=== PATIENT | female | born 1995 | race Caucasian/White ===

== ENCOUNTER 2020-01-05 12:24 | Emergency (ER) | payer BC, SELFPAY ==
[2020-01-05 13:10] VITALS: BP 142/82; PULSE 84; RESP 20; TEMP 36.6; O2SAT 99
--- NOTE | 2020-01-05 14:22 | ED.GENADULT ---
HPI - General Adult General Chief complaint: Urogenital-Female Stated complaint: vomiting Time Seen by Provider: 01/05/20 14:22 Source: patient and RN notes reviewed Mode of arrival: ambulatory Limitations: no limitations History of Present Illness HPI narrative: 24-year-old female presents with urinary complaints for the past 7 days. Dysuria consist of burning, frequency, and urgency.? No treatment.? Denies fever or chills. No significant pelvic pain. No vaginal discharge.? No concerns for STDs. Exacerbating factors urinating.? Denies hematuria or vaginal bleeding. Denies being , LMP 12/05/19 José says she has irregualr menstrual cycles. No flank pain. One episode of emesis without blood or coffee ground contents in the earlly am. Denies nausea and abdominal pain.? Tolerating liquids well.? Remains active. Some parts of this dictation were generated by voice recognition software and may contain typographical and/or grammatical inaccuracies. Related Data Allergies Allergy/AdvReac Type Severity Reaction Status Date / Time metoclopramide [From Reglan] Allergy Anxiety Verified 01/05/20 14:40 Review of Systems Review of Systems: Narrative: CONSTITUTIONAL: Denies fever, chills, sweats. EYES: Denies visual changes, redness, discharge. ENT: Denies rhinorrhea, congestion, sore throat, otalgia. CARDIOVASCULAR: Denies chest pain, palpitations, edema. RESPIRATORY: Denies dyspnea, wheezing, cough. GASTROINTESTINAL: Denies abdominal pain, nausea, vomiting, diarrhea. GENITOURINARY: Complains of dysuria (burning, frequency, and urgency). Denies hematuria, abnormal discharge. SKIN: Denies rash or itching. MUSCULOSKELETAL: Denies acute back pain, joint pain, or myalgia. NEUROLOGIC: Denies numbness or focal weakness. PSYCHIATRIC: Denies anxiety or depression. All systems reviewed & are unremarkable except as noted in HPI and below. [facility] Past Medical History Medical History (Updated 01/06/20 @ 00:00 by Background Daemon) , ectopic Surgical History Surgical History (Updated 01/05/20 @ 14:50 by SANJANA Tejada) History of cholecystectomy Family History Family History (Updated 01/05/20 @ 14:51 by SANJANA Tejada) Mother Alive and well Father Alive and well Social History Social History (Updated 01/05/20 @ 14:51 by SANJANA Tejada) Smoking status: Former smoker Alcohol intake: never Substance use: current Substance use type: marijuana Living arrangements: with family Occupation/Education: occupation Gender identity (if verbalized by the patient): Female Comments At time of signature, agree with nurse past medical, surgical, social, and family history.? There is no relevant family history pertinent to the presenting complaint. Exam Narrative: Exam Narrative: GENERAL: This is a well-nourished, well-developed patient, in no apparent distress.? Talks in full sentences and ambulates with steady gait without dyspnea. HEAD: normocephalic, atraumatic. EYES: PERRL. Sclera clear/white. Vision is grossly intact. CARDIOVASCULAR: Regular rate and rhythm without murmurs, gallops, or rubs. RESPIRATORY: Clear to auscultation. Breath sounds equal bilaterally. No wheezes, rales, or rhonchi.? GASTROINTESTINAL: Abdomen soft, no significant abdominal tenderness, nondistended. Bowel sounds are active. No hepato-splenomegaly, or palpable masses. No guarding. SKIN: warm, intact with no suspicious lesions or rash, No Purpura or Ecchymosis, good texture and turgor. NEURO: awake, alert, and oriented to person, place and time. There were no obvious focal neurologic abnormalities.? EXTREMITIES: No clubbing, cyanosis, or edema. BACK: Nontender without deformity or crepitance.?No flank tenderness with palpitation. [place] Coma Scale Eye Opening:? Spontaneous 4 Chris Coma Scale Motor:? Obeys Commands 6 [place] Coma Scale Verbal:? Oriented 5 Course Vital Signs Vital signs: Vital Signs T
== END 2020-01-05 15:00 | disposition home or self-care (01) ==
PROVIDERS: Emergency Provider Nurse Practitioner Family
DX: R30.0 Dysuria (principal); Z87.891 Personal history of nicotine dependence
CPT/HCPCS: 81003; 87086; 87088; 99213; G0463

== ENCOUNTER 2020-02-11 11:54 | Emergency (ER) | payer BC, SELFPAY ==
[2020-02-11 11:58] VITALS: BP 131/68; PULSE 86; RESP 14; TEMP 37.3; O2SAT 99
--- NOTE | 2020-02-11 12:05 | ED.GENADULT ---
HPI - General Adult General Chief complaint: Upper Respiratory Infection Stated complaint: head chest and ears hurt and cough History of Present Illness HPI narrative: This is a 24 year old that comes in complaining of headache, and states that she has a headache and she has pressure like a elephant sitting on her chest. when questioned if there is shortness of breath patient denied . Patient denies having any heart pain or palpitation. patient denied any shooting pain down her arm and then stated I don't know what I meant. Patient states that her behind her ear hurts and she has a slight sore throat. Patient states that her ear feel clogged. Related Data Allergies Allergy/AdvReac Type Severity Reaction Status Date / Time metoclopramide [From Reglan] Allergy Anxiety Verified 02/11/20 12:05 Review of Systems Review of Systems: Narrative: CONSTITUTIONAL: Denies fever, chills, or sweats. EYES: Denies visual changes, redness, or discharge. ENT: Reports rhinorrhea, congestion, sore throat, or otalgia. CARDIOVASCULAR:Denies chest pain, palpitations, or edema. RESPIRATORY: Reports cough or dyspnea. GASTROINTESTINAL: Denies abdominal pain, nausea, vomiting, or diarrhea. GENITOURINARY: Denies dysuria or hematuria. SKIN:[Denies rash or itching. MUSCULOSKELETAL:Denies back pain, joint pain, or myalgia. NEUROLOGIC: Denies headache, numbness, or weakness. PSYCHIATRIC:Denies anxiety or depression [facility] Past Medical History Medical History (Updated 02/11/20 @ 12:43 by Isaiah Wan NP) , ectopic Surgical History Surgical History (Updated 01/05/20 @ 14:50 by SANJANA Tejada) History of cholecystectomy Family History Family History (Updated 01/05/20 @ 14:51 by SANJANA Tejada) Mother Alive and well Father Alive and well Social History Social History (Updated 01/05/20 @ 14:51 by SANJANA Tejada) Smoking status: Former smoker Alcohol intake: never Substance use: current Substance use type: marijuana Gender identity (if verbalized by the patient): Female Comments At time as signature, I have reviewed and agree with nursing past medical, social, surgical and family history. Please see nursing chart for further information. There is no relevant family history pertinent to the presenting complaint. Exam Narrative: Exam Narrative: GENERAL:Well-appearing, well-nourished, and in no acute distress. HEAD:Normocephalic, atraumatic. EYES: PERRLA and EOMI. ENT: Nares clear, no rhinorrhea or epistaxis. Mucous membranes moist. Pharyngeal erythema NECK: Supple. CHEST: Clear to auscultation. No respiratory distress. HEART: Regular rate and rhythm. No murmur heard. Normal peripheral pulses. ABDOMEN: Soft, nontender, nondistended, normal active bowel sounds. EXTREMITIES: Normal range of motion. No edema. SKIN: Warm, dry, no rash. NEURO: No focal deficits. Alert and oriented x3. Patient is sitting calming with even and unlabored breathing. No distress noted. after Tordal patient states her headache is gone and her chest pressure is gone Pain was a 5/10 now it is 1-0/10 Course Course Emergency Course: Patient is aware of diagnosis, understands and agrees to treatment plan. Anticipatory guidance given. Patient agrees to follow-up as directed and is aware of reasons to seek care at the emergency department. Vital Signs Vital signs: Vital Signs Temperature 99.1 F 02/11/20 11:58 Pulse Rate 86 02/11/20 11:58 Respiratory Rate 14 02/11/20 11:58 Blood Pressure 131/68 02/11/20 11:58 Pulse Oximetry 99 02/11/20 11:58 Temperature 99.1 F 02/11/20 11:58 Pulse Rate 86 02/11/20 11:58 Respiratory Rate 14 02/11/20 11:58 Blood Pressure 131/68 02/11/20 11:58 Pulse Oximetry 99 02/11/20 11:58 Medical Decision Making Differential Diagnosis Differential Diagnosis: Pneumonia, Allergic Rhinitis, Asthma/COPD exacerbation, Upper respiratory cough syndrome, Pha
[2020-02-11] MEDS: KETOROLAC 30 MG/ML VIAL (*BKC) IM (12:11)
== END 2020-02-11 12:54 | disposition home or self-care (01) ==
PROVIDERS: Emergency Provider Nurse Practitioner Family
DX: G44.209 Tension-type headache, unspecified, not intractable (principal); J30.9 Allergic rhinitis, unspecified; Z87.891 Personal history of nicotine dependence
CPT/HCPCS: 87081; 87880; 96372; 99213; G0463; J1885

== ENCOUNTER 2021-07-27 08:55 | Emergency (ER) | payer BC, SELFPAY ==
--- NOTE | ~2021-07-27 | XR_ITS ---
EXAMINATION: XR toe 5th RT min 2V DATE: 07/27/2021 09:25 INDICATION: Right fifth toe pain and injury. TECHNIQUE: 3 views of right fifth toe were obtained. COMPARISON: None. FINDINGS: Bone alignment is normal. No fracture. Joint spaces are well maintained. IMPRESSION: 1. No fracture. Reviewed, dictated and finalized at location A. IMPRESSION: 1. No fracture.
[2021-07-27 09:07] VITALS: BP 137/76; PULSE 80; RESP 16; TEMP 36.6; O2SAT 100
--- NOTE | 2021-07-27 09:38 | ED.LOWEXIN ---
HPI - Extremity Injury (Lower) General Chief Complaint: Extremity Injury, Lower Stated Complaint: Toe Injury Time Seen by Provider: 07/27/21 09:34 Source: patient and RN notes reviewed Mode of arrival: ambulatory Limitations: no limitations History of Present Illness HPI Narrative: José presents to the ER with right fifth toe pain. Patient states she stubbed her toe last night and then her son stepped on it. Patient states there is a small open area between the fourth and fifth toe. Patient states she has increased pain with walking; pain is relieved with rest and elevation. Patient rates that pain 6 out of 10 reports it is a dull throbbing. Patient denies using intimate medications prior to arrival; she did place ice on her foot. MD complaint: foot injury Onset (ago): day(s) (one) Related Data Home Medications Medication Instructions Recorded Confirmed No Home Medications 07/27/21 07/27/21 Allergies Allergy/AdvReac Type Severity Reaction Status Date / Time metoclopramide [From Reglan] Allergy Anxiety Verified 07/27/21 09:32 Review of Systems Review of Systems: CONSTITUTIONAL: Denies body aches, fever, chills, or sweats. EYES: Denies visual changes, redness, or discharge. ENT: Denies rhinorrhea, congestion, sore throat, or otalgia. CARDIOVASCULAR: Denies chest pain, palpitations, or edema. RESPIRATORY: Denies cough or dyspnea. GASTROINTESTINAL: Denies abdominal pain, nausea, vomiting, or diarrhea. GENITOURINARY: Denies dysuria or hematuria. SKIN: Denies rash, itching, or wounds. MUSCULOSKELETAL: + right fifth toe pain, abrasion right fifth toe. NEUROLOGIC: Denies headache, numbness, tingling, or weakness. PSYCH: Denies depression or anxiety. All systems reviewed & are unremarkable except as noted in HPI and below PMFSH Past Medical History Medical History , ectopic Surgical History Surgical History History of cholecystectomy Family History Family History Mother Alive and well Father Alive and well Social History Social History (Reviewed 07/27/21 @ 11:30 by CECILLE Greene Smoking status: Former smoker Alcohol intake: never Substance use: current Substance use type: marijuana Gender identity (if verbalized by the patient): Female Comments At time of signature, I have reviewed and agree with nursing past medical, surgical, social and family history unless otherwise noted. Please see nursing chart for further information. There is no relevant family history pertinent to the presenting complaint. Exam Narrative: GENERAL: Well-appearing, well-nourished, and in no acute distress. HEAD: Normocephalic, atraumatic. EYES: EOMI. No redness or drainage. Conjunctivae normal. ENT: Mucous membranes pink and moist. Nares clear. No rhinorrhea. NECK: Normal AROM. Supple. . MUSCULOSKELETAL: No bony tenderness. EXTREMITIES: right fifth toe edematous, small abrasion webbing of 4/5 toes SKIN: Warm, dry, no rash. Capillary refill normal. Normal skin turgor. NEURO: No focal deficits. Alert and oriented x3. Gait steady. PSYCH: Normal affect. No signs of depression or anxiety. Course Vital Signs Vital signs: Vital Signs Temperature 36.6 C 07/27/21 09:07 Pulse Rate 80 07/27/21 09:07 Respiratory Rate 16 07/27/21 09:07 Blood Pressure 137/76 07/27/21 09:07 Pulse Oximetry 100 07/27/21 09:07 Temperature 36.6 C 07/27/21 09:07 Pulse Rate 80 07/27/21 09:07 Respiratory Rate 16 07/27/21 09:07 Blood Pressure 137/76 07/27/21 09:07 Pulse Oximetry 100 07/27/21 09:07 Reviewed. Pt has been instructed to follow up with her PCP regarding her elevated blood pressure today. MDM - Extremity Injury (Lower) Differential Diagnosis Differential diagnosis: Likely ankle sprain and strain, fra
== END 2021-07-27 09:50 | disposition home or self-care (01) ==
PROVIDERS: Emergency Provider Nurse Practitioner Family; PCP Nurse Practitioner Family
DX: S90.121A Contusion of right lesser toe(s) without damage to nail, initial encounter (principal); W22.8XXA Striking against or struck by other objects, initial encounter
CPT/HCPCS: 73660; 99213; G0463

== ENCOUNTER 2023-04-26 18:09 | Emergency (ER) | payer BC, MEDICAID, SELFPAY ==
[2023-04-26 18:15] VITALS: BP 140/83; PULSE 81; RESP 18; TEMP 36.5; O2SAT 97
--- NOTE | 2023-04-26 18:27 | ED.UPPEXIN ---
HPI - Extremity Injury (Upper) General Chief Complaint: Extremity Injury, Upper Stated Complaint: Right shoulder pain Time Seen by Provider: 04/26/23 18:27 Source: patient and RN notes reviewed Mode of arrival: ambulatory Limitations: no limitations History of Present Illness HPI narrative: 28-year-old female presents with concern for right shoulder pain. She denies known injury or trauma. Reports pain started gradually about 3 days ago and has increased. She reports it is slightly painful at rest, worsens with abduction of her arm. She reports she has been taking some ibuprofen occasionally. She denies warmth, redness. She lifts a lot with her job. She denies any hyperextension injury MD complaint: injury to: right and shoulder Related Data Home Medications Medication Instructions Recorded Confirmed fluoxetine 40 mg capsule 40 mg PO DAILY 04/26/23 04/26/23 prazosin 1 mg capsule 1 mg PO QHS 04/26/23 04/26/23 Allergies Allergy/AdvReac Type Severity Reaction Status Date / Time metoclopramide [From Reglan] AdvReac Intermediate Anxiety Verified 04/26/23 18:26 Review of Systems Review of Systems: CONSTITUTIONAL: Denies malaise, chills, sweats, or fever. SKIN: Denies rash or itching, open skin, laceration, abrasion, redness, warmth, swelling. MUSCULOSKELETAL: Reports right shoulder pain NEUROLOGIC: Denies numbness, weakness All systems reviewed & are unremarkable except as noted in HPI and below PMFSH Past Medical History Medical History , ectopic Surgical History Surgical History History of cholecystectomy Family History Family History Mother Alive and well Father Alive and well Social History Social History Smoking status: Former smoker Alcohol intake: never Substance use: current Substance use type: marijuana Living arrangements: with family Occupation/Education: occupation Gender identity (if verbalized by the patient): Female Comments At time of signature, agree with nursing past medical, surgical, social and family history. There is no relevant family history pertinent to the presenting complaint Exam Narrative: GENERAL: Well-appearing, well-nourished, and in no acute distress. HEAD: Normocephalic, atraumatic. EYES: PERRLA, conjunctivae clear NECK: Supple. CHEST: Speaks in full sentences. No respiratory distress. HEART: Regular rate and rhythm. Normal and equal peripheral pulses. EXTREMITIES: Right shoulder has normal sensation, limited strength and range of motion. No edema or ecchymosis. 4/5 strength with shoulder abduction. Normal sensation with sensitivity to light touch and pain. Lateral joint tenderness. No open wounds, no skin tenting, no devitalized tissue or atrophy, no trophic changes, no obvious deformity, alignment normal, nearby joints and structures intact. Distal pulses palpable and equal bilaterally, skin warm, dry, pink. Capillary refill less than 3 seconds. SKIN: Warm, dry, no rash. NEURO: Alert and oriented x3. PSYCH: Normal mood and affect Course Course Emergency Course: Patient is aware of diagnosis, understands and agrees to treatment plan. Anticipatory guidance given. Patient agrees to follow-up as directed and is aware of reasons to seek care at the emergency department. Portions of this record may have been created with voice recognition software Level of Care: Express Care Visit Vital Signs Vital signs: Vital Signs Temperature 97.7 F 04/26/23 18:15 Pulse Rate 81 04/26/23 18:15 Respiratory Rate 18 04/26/23 18:15 Blood Pressure 140/83 04/26/23 18:15 Pulse Oximetry 97 04/26/23 18:15 Oxygen Delivery Room Air 04/26/23 18:15 Temperature 97.7 F 04/26/23 18:15 Pulse Rate 81 04/26/23 18:1
== END 2023-04-26 18:40 | disposition home or self-care (01) ==
PROVIDERS: Emergency Provider Nurse Practitioner; PCP Nurse Practitioner Family
DX: M25.511 Pain in right shoulder (principal); F12.90 Cannabis use, unspecified, uncomplicated
CPT/HCPCS: 99213; A4565; G0463

== ENCOUNTER 2023-12-09 12:10 | Emergency (ER) | payer OTHER, SELFPAY ==
[2023-12-09 12:16] VITALS: BP 134/76; PULSE 91; RESP 20; TEMP 36.8; O2SAT 99
--- NOTE | 2023-12-09 13:12 | ED.URI ---
HPI - URI/Sore Throat General Chief Complaint: Upper Respiratory Infection Stated Complaint: Sore Throat/Shortness of Breath History of Present Illness HPI Narrative: 28 year old female presented for complaint of sore throat x3 days. endorses painful swallow, painful lymph nodes, and n/v yesterday. denies shortness of breath, wheezing, lethargy, fevers. Not taking anything for pain. She is able to maintain her secretions. Related Data Allergies Allergy/AdvReac Type Severity Reaction Status Date / Time metoclopramide [From Reglan] AdvReac Intermediate Anxiety Verified 04/26/23 18:26 Review of Systems Review of Systems: CONSTITUTIONAL: Denies body aches, fever, chills, or sweats. EYES: Denies visual changes, redness, or discharge. ENT: reports sore throat Denies rhinorrhea, congestion, or otalgia. CARDIOVASCULAR: Denies chest pain, palpitations, or edema. RESPIRATORY: Denies dyspnea. GASTROINTESTINAL: Denies abdominal pain, reports nausea, vomiting SKIN: Denies rash, itching, or wounds. MUSCULOSKELETAL: Denies back pain, joint pain, or myalgia. NEUROLOGIC: Denies headache PMFSH Past Medical History Medical History , ectopic Surgical History Surgical History History of cholecystectomy Family History Family History Mother Alive and well Father Alive and well Social History Social History Smoking status: Former smoker Alcohol intake: never Substance use: current Substance use type: marijuana Living arrangements: with family Occupation/Education: occupation Gender identity (if verbalized by the patient): Female Exam Narrative: GENERAL: Ill-appearing, nontoxic no acute distress. EYES: conjunctivae clear ENT: Mucous membranes moist. TMs pearly cote with normal light reflex bilaterally; no tragal tenderness. Oropharynx erythematous without lesions. Tonsils enlarged 3+ and without exudate. Mild hot potato voice. No drooling, no hoarseness, no trismus, uvula midline. No tripod positioning, or soft palate swelling. NECK: Supple. Bilateral anterior cervical lymphadenopathy CHEST: Clear to auscultation, breath sounds equal. No respiratory distress, speaks in full sentences. HEART: Regular rate and rhythm. No murmur heard. SKIN: Warm, dry, no rash. NEURO: Alert and oriented x3. Course Course Emergency Course: Patient is aware of diagnosis, understands and agrees to treatment plan. Anticipatory guidance given. Patient agrees to follow-up as directed and is aware of reasons to seek care at the emergency department. Portions of this record may have been created with voice recognition software Level of Care: Express Care Visit Vital Signs Vital signs: Vital Signs Temperature 98.3 F 12/09/23 12:16 Pulse Rate 91 12/09/23 12:16 Respiratory Rate 20 12/09/23 12:16 Blood Pressure 134/76 12/09/23 12:16 Pulse Oximetry 99 12/09/23 12:16 Oxygen Delivery Room Air 12/09/23 12:16 Temperature 98.3 F 12/09/23 12:16 Pulse Rate 91 12/09/23 12:16 Respiratory Rate 20 12/09/23 12:16 Blood Pressure 134/76 12/09/23 12:16 Pulse Oximetry 99 12/09/23 12:16 Oxygen Delivery Room Air 12/09/23 12:16 MDM - URI/Sore Throat MDM Narrative Medical decision making narrative: POS strep result reviewed with pt. Advise supportive treatments. Patient is appropriate for outpatient treatment and follow-up. Differential Diagnosis Differential diagnosis: Likely upper respiratory infection, viral infection and pharyngitis Lab Data Labs: Strep Screen Positive Group A Strep *(Reference Range: Negative)* Discharge Plan Discharge Clinical Impression: Strep pharyngitis Shimon
== END 2023-12-09 13:25 | disposition home or self-care (01) ==
PROVIDERS: Emergency Provider Nurse Practitioner Family; PCP Nurse Practitioner Family
DX: J02.0 Streptococcal pharyngitis (principal); Z87.891 Personal history of nicotine dependence; F12.90 Cannabis use, unspecified, uncomplicated
CPT/HCPCS: 87880; 99213; G0463